=== PATIENT | female | born 1945 | race Caucasian/White ===

== ENCOUNTER 2016-08-29 07:00 | Inpatient (IN) | payer MEDICARE, OTHER ==
[~2016-08-29] VITALS: Ht 165.1 cm; Wt 58.3 kg
[2016-11-01] MEDS ORDERED: DIAZ5 PO (09:44)
[2016-11-01] MEDS ORDERED: [UNRECOGNIZED DRUG - CODE] PO (09:45)
[2016-11-01] MEDS ORDERED: METH10003 PO (09:46)
[2016-11-01] MEDS ORDERED: MULTTAB67 PO (09:47)
[2016-11-01] MEDS ORDERED: BIOT10TA PO (09:48)
--- NOTE | 2016-11-06 10:04 | MH ---
cc: Hanny CASTRO M.D. DATE OF ADMISSION 11/12/2016 ADMISSION DIAGNOSIS Osteoarthritic degeneration right hip now being admitted for right total hip arthroplasty. ADMISSION HISTORY AND PHYSICAL This 71-year female is being admitted today for a right total hip arthroplasty due to severe painful osteoarthritic degeneration right hip. OTHER PAST HISTORY The patient has a history of arthritis and having a hernia in the past. CURRENT MEDICATIONS She takes Valium 5 mg every night. PREVIOUS SURGERIES 1. Left total knee arthroplasty years ago 2. Deviated septum repair 3. Cataract surgery a month ago 4. Appendectomy 5. Hernia repair REVIEW OF SYSTEMS Noncontributory FAMILY HISTORY Noncontributory SOCIAL HISTORY She does not smoke or drink. ALLERGIES She has no known allergies. PHYSICAL EXAMINATION We find a 71-year female well-developed, well-nourished oriented x3 complaining of pain in her right hip. VITAL SIGNS: Blood pressure 118/70, pulse 73 and regular, respirations 16, temperature 97.6, pulse oximetry 97% on room air. HEENT: Eyes PERRL, EOMI. Ears, nose, mouth clear. NECK: Supple. LUNGS: Clear. HEART: Regular rate. ABDOMEN: Soft. Positive bowel sounds, nontender. EXTREMITIES: Revealed decreased range of motion right hip. She is neurovascularly intact to her toes. IMPRESSION Severe painful osteoarthritic degeneration right hip. PLAN Admission for right total hip arthroplasty today. The patient given a prescription for postoperative pain and anticoagulation control in the office. She understands she is to use Hibiclens scrub and Bactroban preoperatively. Plans on going home with home health care and physical therapy after surgery. MD RUPERTO Valencia/ADRIANA /9:57 AM /10:00 AM
[2016-11-12] MEDS ORDERED: CHLORHEXIDINE GLUCONATE 2 % 1 PACK (2 CLOTHS) TOPICAL PRN (06:15)
[2016-11-12] MEDS ORDERED: SODIUM CHLORID 0.9% 500 ML IV PRN (06:15)
[2016-11-12] MEDS ORDERED: ceFAZolin 2 GM PREMIX 50 ML IV SCH (06:15)
[2016-11-12] MEDS ORDERED: CHLORHEXIDINE GLUCONATE 4% SOLN 120 ML BTL TOPICAL SCH (06:15)
[2016-11-12] MEDS ORDERED: METOPROLOL TARTRATE 25 MG TAB PO PRN (06:15)
[2016-11-12] MEDS ORDERED: VANCOMYCIN 1000 MG/NS 250 ML (for <70 kg) IV SCH ×2 (06:15)
[2016-11-12] MEDS ORDERED: LACTATED RINGER'S 1000 ML IV PRN (06:15)
[2016-11-12] MEDS ORDERED: INSULIN HUMAN REGULAR 1,000 UNITS/10 ML VIAL SQ PRN (06:15)
[2016-11-12] MEDS ORDERED: POVIDONE IODINE 5% (ANTISEPSIS KIT) 4 APPLICATIONS EACH NARE PRN (06:15)
[2016-11-12 06:31] VITALS: BP 115/61; PULSE 65; RESP 16; TEMP 98; O2SAT 99
[2016-11-12] MEDS ORDERED: BIOTCAP PO (06:31)
[2016-11-12] MEDS ORDERED: MIDAZOLAM HCL 2 MG/2 ML VIAL ONE (07:47)
[2016-11-12] MEDS ORDERED: EXPAREL PERI-ARTICULAR INJECTION (TOTAL VOL. 120 ML) P-ARTICULR SCH ×2 (08:00)
[2016-11-12] MEDS ORDERED: SODIUM CHLORIDE 0.9% IV SCH ×2 (08:00→11:00)
[2016-11-12] MEDS ORDERED: TRANEXAMIC ACID IV SCH ×2 (08:00→11:00)
--- NOTE | 2016-11-12 08:05 | HHI.FF ---
Face to Face Verification Diagnosis: (1) Status post total hip replacement, right Physical Therapy Gait training Hip: Total hip, Protocol: Right, Posterior hip precautions, Abduction pillow while in bed, Progress to weight bearing Nursing RN: 3 days/week x 2 weeks Nursing: Natalie madera Dressing Changes: Do not change dressing I have seen patient Radha Ngo on 11/12/16. My clinical findings support the need for the requested home health care services because: Limited ability to care for self High risk of falls I certify that my clinical findings support that this patient is homebound because: Unsteady gait/balance Hanny Hernandez MD Nov 12, 2016 08:05
[2016-11-12] MEDS ORDERED: ADJUSTABLE COMM1 MIS (08:07)
[2016-11-12] MEDS ORDERED: WALKER WHEELS/F1 MIS (08:07)
[2016-11-12] MEDS ORDERED: MORPHINE SULFATE 8 MG/ML INJ IV PUSH PRN (08:15)
[2016-11-12] MEDS ORDERED: ACETAMINOPHEN 325 MG TAB PO PRN (08:15)
[2016-11-12] MEDS ORDERED: TRANEXAMIC ACID INJ 0 MG in SODIUM CHLORIDE 0.9% INJ 100 ML IV SCH (08:15)
[2016-11-12] MEDS ORDERED: MISCELLANEOUS NURSING INFORMATION XX PRN (08:15)
[2016-11-12] MEDS ORDERED: NALOXONE HCL 0.4 MG/ML AMP IV PRN (08:15)
[2016-11-12] MEDS ORDERED: TEMAZEPAM 15 MG CAP PO PRN (08:15)
[2016-11-12] MEDS ORDERED: MAGNESIUM HYDROXIDE SUSP 30 ML CUP PO PRN (08:15)
[2016-11-12] MEDS ORDERED: Post-op Orders (for Pharmacy) MISC XX ONE (08:15)
[2016-11-12] MEDS ORDERED: ACETAMINOPHEN/HYDROcodone 325 MG/7.5 MG TAB PO PRN ×2 (08:15)
[2016-11-12] MEDS ORDERED: BISACODYL 10 MG SUPP RECTAL PRN (08:15)
[2016-11-12] MEDS ORDERED: SODIUM CHLORIDE 0.9% FLUSH 5 ML FLUSH IVF PRN (08:15)
[2016-11-12] MEDS ORDERED: MORPHINE SULFATE 30 MG/30 ML PCA IV SCH (08:15)
[2016-11-12] MEDS ORDERED: ceFAZolin INJ 1,000 MG VIAL TOPICAL ONE (08:35)
[2016-11-12] MEDS: BETA CAROTENE 25,000 UNIT CAP PO SCH (09:00)
[2016-11-12] MEDS ORDERED: NON-FORMULARY DRUG (Multiple Vitamin 1 TAB) PO SCH (09:00)
[2016-11-12] MEDS ORDERED: NON-FORMULARY DRUG (Biotin 5 MG) PO SCH (09:00)
[2016-11-12] MEDS: SODIUM CHLORIDE 0.9% FLUSH 5 ML FLUSH IVF SCH ×2 (09:00→21:00)
[2016-11-12] MEDS: CYANOCOBALAMIN 1,000 MCG TAB PO SCH (09:00)
[2016-11-12] MEDS ORDERED: DO NOT ADM ANY ANTICOAGULANT DRUGS PRN (10:14)
[2016-11-12] MEDS ORDERED: *MEPERIDINE 25 MG INJ VIAL PERIprocedural Use ONLY ONE (10:26)
[2016-11-12] MEDS ORDERED: MORPHINE SULFATE 4 MG/ML INJ ONE (10:27)
--- NOTE | 2016-11-12 10:58 | RADRPT ---
EXAM DATE/TIME: 11/12/2016 10:29 [facility] COMPARISON: No previous studies available for comparison. INDICATIONS : Post op total right hip. MEDICAL HISTORY : None. SURGICAL HISTORY : None. ENCOUNTER: Initial ACUITY: 1 day PAIN SCORE: 0/10 LOCATION: Right Hip. FINDINGS: 2 view of the right hip status post right total hip arthroplasty with non-cemented femoral and acetab ular components. Single superior acetabular screws in place. Diffuse scattered areas of soft tissue gas at the surgical site. CONCLUSION: Expected postsurgical findings status post total hip arthroscopy. Bimal Cuevas MD on November 12, 2016 at 10:55 Board Certified Radiologist. This report was verified electronically.
[2016-11-12] MEDS: LACTATED RINGER'S 1000 ML INJ 1,000 ML IV SCH ×2 (11:15→21:04)
[2016-11-12] MEDS ORDERED: PHENYLEPH/NS 1000 MCG/10 ML SYR IV ONE (12:00)
[2016-11-12] MEDS ORDERED: LACTATED RINGER'S 1000 ML INJ 1,000 ML IV ONE (12:00)
[2016-11-12] MEDS ORDERED: PROPOFOL 200 MG/20 ML AMP IV ONE (12:00)
[2016-11-12] MEDS ORDERED: NEOSTIGMINE 3 MG/3 ML SYR IV ONE (12:00)
[2016-11-12] MEDS ORDERED: ONDANSETRON HCL 4 MG/2 ML VIAL IV PUSH ONE (12:00)
[2016-11-12] MEDS: PCA - TOTAL MG MORPHINE DELIVERED PER SHIFT SCH ×2 (12:11→21:05)
[2016-11-12] MEDS: ONDANSETRON HCL 4 MG/2 ML VIAL IVP PRN (12:32)
[2016-11-12 12:37] VITALS: BP 133/62; PULSE 73; RESP 16; TEMP 95.2; O2SAT 96
[2016-11-12 16:00] VITALS: BP 166/86; PULSE 78; RESP 16; TEMP 96.6; O2SAT 99
[2016-11-12 20:30] VITALS: BP 123/59; PULSE 78; RESP 17; TEMP 98.7; O2SAT 98
[2016-11-12] MEDS ORDERED: DIAZEPAM 5 MG TAB PO SCH (21:00)
--- NOTE | 2016-11-12 21:03 | MP ---
cc: Hanny CASTRO DATE OF SURGERY 11/12/2016 PREOPERATIVE DIAGNOSIS Osteoarthritic degeneration right hip POSTOPERATIVE DIAGNOSIS Osteoarthritic degeneration right hip SURGERY PERFORMED Right total hip arthroplasty using Aesculap components - size 11 lateralized stem with a 36 -4 ceramic head and a size 2 cup with a 52-36 E liner with one 28 x 6.5-mm screw. No cement utilized. SURGEON Dr. Pierre Castro TRIMMING MACHINE SET UP OPERATOR ETHEL Bourne ANESTHESIA General intubation total hip arthroplasty and fifth, she was Xeroform of components PROCEDURE: The patient was brought to the Operating Room, where after successful induction of spinal anesthesia was placed on the operating room table in the right lateral decubitus position. The right hip, thigh and leg were prepped and draped in the usual manner. A posterolateral approach was then utilized by making an incision over the proximal portion of the femur lateral aspect, carried across the greater trochanter, carried posterior in a curved incision toward the buttock. The incision was carried down through the subcutaneous tissue, through the fibers of the tensor fascia jb and gluteus karl to expose the greater trochanteric bursa. This was then removed by sharp and blunt dissection. The hip was then internally rotated to expose the insertions of the short external rotators of the hip and were incised at their insertion into the greater trochanter and reflected posterior to protect the sciatic nerve. These were held with a Charnley retractor to better visualize the hip joint. The capsule was identified and removed by sharp dissection. The hip was then dislocated by internal rotation and flexion of the hip. The femoral calcar was then measured using the trial components for the appropriate length cut of the neck using an oscillating saw. After the cut was made the head was removed. The acetabulum was then approached and measured, the acetabulum reamed with the acetabular reamers. Next, the femoral calcar was approached by first inserting a canal finder followed by rigid reamers, followed by a cookie-cutter to the appropriate size, in this case being a #15. The broach was left in place and a planer used to plane the calcar to a smooth finish. The broach was then removed. The trial components were then inserted into place, the hip reduced, found to track smoothly with no evidence of subluxation or dislocation. All trial components were removed. The wound was irrigated copiously with antibiotic solution and Water Pik. The actual components were then inserted and impacted into place using aforementioned components. The hip was reduced, found to track smoothly with no evidence of subluxation or dislocation. The wound was irrigated copiously with antibiotic solution, meticulous hemostasis achieved. The capsule was then approximated using interrupted #1 Vicryl suture, two Hemovacs inserted. Deep fascia approximated with #2 running quill, subcutaneous tissue approximated using interrupted 2-0 and 4-0 Monocryl suture and Dermabond dressing along with abduction pillow splint and knee immobilizer. No drain utilized. Sciatic nerve identified, protected throughout the procedure. 40 mL of Exparel used at anterior hip joint for extra pain control. Sciatic nerve identified and protected throughout the procedure. ETHEL Ashraf, was present during the entire procedure to include patient positioning and the procedure. The medical necessity of nurse practitioner lpn or medical assistant was indicated in this case due to the surgical complexity of the case itself. During the surgical case, surgical training specialist was working the back table while my surgical training specialist, ETHEL, was directly assisting me. Sponge and sutured count correct. The patient tolerated procedure well and left the operating in satisfactory condition. MD RUPERTO Valencia/ /10:28 AM /8:55 PM [facility]
[2016-11-13 00:05] VITALS: BP 110/53; PULSE 86; RESP 17; TEMP 100; O2SAT 97
[2016-11-13 04:12] VITALS: BP 99/56; PULSE 83; RESP 17; TEMP 99.4; O2SAT 97
[2016-11-13] MEDS: PCA - TOTAL MG MORPHINE DELIVERED PER SHIFT SCH (05:06)
[2016-11-13 07:10] LABS: HEMATOCRIT 27.9 % (35.0-46.0); REVIEW FLAG FINAL
[2016-11-13 07:21] VITALS: BP 108/51; PULSE 86; RESP 16; TEMP 99.8; O2SAT 95
--- NOTE | 2016-11-13 07:50 | PD.ORT.PN ---
Subjective Subjective Remarks pt comfortable with no complaints. Wants to go home today. Objective Vitals Vital Signs Date Time Temp Pulse Resp B/P Pulse Ox O2 Delivery O2 Flow Rate FiO2 11/13/16 05:06 18 11/13/16 04:12 99.4 83 17 99/56 97 11/13/16 00:05 100.0 86 17 110/53 97 11/12/16 21:05 18 11/12/16 20:30 98.7 78 17 123/59 98 11/12/16 16:00 96.6 78 16 166/86 99 11/12/16 15:31 21 11/12/16 12:37 95.2 73 16 133/62 96 11/12/16 11:45 69 16 141/64 95 Room Air 11/12/16 11:33 96.9 73 16 131/59 96 Room Air 11/12/16 11:28 14 11/12/16 11:15 67 14 126/61 95 Room Air 11/12/16 11:00 74 14 134/63 93 Room Air 11/12/16 10:45 73 14 137/61 94 Room Air 11/12/16 10:30 81 14 154/96 96 Room Air 11/12/16 10:26 97.0 85 14 152/72 98 Room Air I/O 11/12/16 11/12/16 11/12/16 11/13/16 11/13/16 11/13/16 07:00 15:00 23:00 07:00 15:00 23:00 Intake Total 530 ml 240 ml 480 ml Output Total 0 ml Balance 530 ml 240 ml 480 ml Intake Oral 480 ml 240 ml 480 ml IV Total 50 ml Output Urine Total 0 ml # Voids 1 3 3 # Bowel Movements 0 0 0 Result Diagram: 11/13/16 0649 Imaging Last 24 hours Impressions Hip X-Ray 11/12/16 0801 Signed Impressions: Service Date/Time: Saturday, November 12, 2016 10:29 - CONCLUSION: Expected postsurgical findings status post total hip arthroscopy. Bimal Cuevas MD Objective Remarks Dressing dry and intact. NV to toes. No calf tenderness. Ambulating well. Assessment & Plan Ortho Post Op Day #: 1 Problem List: Assessment and Plan Home today after PT with [facility]. Hanny Hernandez MD Nov 13, 2016 07:50
--- NOTE | 2016-11-13 07:54 | HHI.DS ---
Discharge Summary Admission Date Nov 12, 2016 at 05:35 Discharge Date: Nov 13, 2016 Admitting Diagnosis Osteoarthritic degeneration right hip Diagnosis: (1) Status post total hip replacement, right Diagnosis: Principal Brief History This is a 71 year old female patient CBC/BMP: 11/13/16 0649 Significant Findings Laboratory Tests Test 11/13/16 06:49 Hemoglobin 9.8 GM/DL (11.6-15.3) Hematocrit 27.9 % (35.0-46.0) PE at Discharge Dressing dry and intact. NV to toes. No calf tenderness. Ambulating well. Hospital Course Patient underwent a right total hip arthroplasty on day of admission. She received a course of prophylactic IV antibiotics and within 23 hours started on anticoagulation therapy. She continued to improve tolerating food and fluids well and was discharged the following day in the afternoon after class in good condition with instructions for home healthcare and physical therapy. She has follow-up office appointment. She is discharged on by mouth pain meds and anticoagulation therapy. Pt Condition on Discharge: Good Discharge Disposition: Disch w/ Home Health Serv Discharge Instructions Diet Instructions: As Tolerated, No Restrictions Activities You Can Perform: Full Weight Bearing, Shower Only-No Bath Activities to Avoid: Strenuous Activity, Bathing, Driving Hanny Hernandez MD Nov 13, 2016 07:54
[2016-11-13] MEDS ORDERED: ENOXAPARIN SODIUM 30 MG/0.3 ML SYRINGE SQ SCH (09:00)
[2016-11-13] MEDS: SODIUM CHLORIDE 0.9% FLUSH 5 ML FLUSH IVF SCH (09:00)
[2016-11-13] MEDS: LACTATED RINGER'S 1000 ML INJ 1,000 ML IV SCH (09:01)
[2016-11-13] MEDS: CYANOCOBALAMIN 1,000 MCG TAB PO SCH (09:03)
[2016-11-13] MEDS: BETA CAROTENE 25,000 UNIT CAP PO SCH (09:03)
[2016-11-13] MEDS: ONDANSETRON HCL 4 MG/2 ML VIAL IVP PRN (09:29)
[2016-11-13 09:30] VITALS: O2SAT 96
[2016-11-13 11:25] LABS: BACTERIA, URINE RARE /hpf; BLOOD, URINE NEG (NEG); COMMENT (UR) CULTURE INDICATED; CULTURE IF INDICATED CULTURE INDICATED; GLUCOSE,URINE NEG (NEG); KETONE, URINE NEG (NEG); MUCUS URINE FEW /lpf (OCC); NITRITE,URINE NEG (NEG); SQUAMOUS EPITHELIAL CELL URINE 1 /hpf (0-5); URINE COLOR YELLOW (YELLW/STRAW)
[2016-11-13 11:47] VITALS: BP 131/54; PULSE 91; RESP 16; TEMP 99; O2SAT 96
[2016-11-13] MEDS ORDERED: CIPR-9 PO (14:59)
[2016-11-13] MEDS ORDERED: CIPROFLOXACIN 500 MG TAB PO SCH (15:00)
[2016-11-13] MEDS ORDERED: MULTIVITAMINS/MINERALS THERAPEUTIC TAB PO SCH (21:00)
[2016-11-13] MEDS ORDERED: DOCUSATE SODIUM 100 MG CAP PO SCH (21:00)
== END 2016-11-13 16:01 | disposition home health service (06) | DRG 470 ==
LOC: HSDI 11-12 05:35 → N06B 11-12 12:15
PROVIDERS: ADMIT Surgery; ATTEND Surgery
PROC: 0SR904A Replacement of Right Hip Joint with Ceramic on Polyethylene Synthetic Substitute, Uncemented, Open Approach (ICD-10-PCS; principal; 2016-11-12 07:50)
DX: M16.11 Unilateral primary osteoarthritis, right hip (principal); Z96.652 Presence of left artificial knee joint
CPT/HCPCS: 73501; 81001; 85014; 85018; 86850; 86900; 86901; 87086; 94150; C1776; C9290; J0690; J1650; J2175; J2250; J2270; J2370; J2405; J2710; J3010; J3370; J7050; J7120; L1830

== ENCOUNTER → 2016-11-01 | Outpatient (CLI) | payer MEDICARE ==
[~2016-11-01] MED LIST: ADJUSTABLE COMM1 MIS; BIOT10TA PO; BIOTCAP PO; CIPR-9 PO; DIAZ5 PO; GLUC250C5 PO; IRON28TA PO; LORA-392 PO; METH10003 PO; METH1LOZ PO; MULTTAB67 PO; WALKER WHEELS/F1 MIS; Z.0.COMMODE-3:1; Z.0.CPM; Z.0.WALKERFRONT; [UNRECOGNIZED DRUG - CODE] PO
[2016-11-01 10:07] LABS: AUTOMATED NEUTROPHIL # 3.6 TH/MM3 (1.8-7.7); BASOPHIL % 0.4 % (0.0-2.0); EOSINOPHIL # 0.2 TH/MM3 (0-0.4); EOSINOPHIL % 2.4 % (0.0-4.0); HEMATOCRIT 42.7 % (35.0-46.0); HEMO FLAGS DIFF FINAL; LYMPH % 43.7 % (9.0-44.0); LYMPHOCYTE # 3.6 TH/MM3 (1.0-4.8); MEAN CELL VOLUME 90.2 FL (80.0-100.0); MEAN CORPUSCULAR HEMOGLOBIN 30.7 PG (27.0-34.0); MONO % 9.1 % (0.0-8.0); NEUT % 44.4 % (16.0-70.0); PLATELET COUNT 294 TH/MM3 (150-450); RED BLOOD COUNT 4.74 MIL/MM3 (4.00-5.30); RED CELL DISTRIBUTION WIDTH 14.2 % (11.6-17.2); WHITE BLOOD COUNT 8.2 TH/MM3 (4.0-11.0)
[2016-11-01 10:19] LABS: APTT (PATIENT) 26.5 SEC (24.3-30.1); PROTHROMBIN TIME - PATIENT 10.7 SEC (9.8-11.6)
[2016-11-01 10:28] LABS: ANION GAP 5 MEQ/L (5-15); AST (GOT) 20 U/L (15-37); BLOOD UREA NITROGEN 8 MG/DL (7-18); CHLORIDE 107 MEQ/L (98-107); GLOMERULAR FILTRATION RATE 80 ML/MIN (>89); GLUCOSE,FASTING 96 MG/DL (74-99); POTASSIUM 4.5 MEQ/L (3.5-5.1); SODIUM (NA) 143 MEQ/L (136-145)
[2016-11-01 10:32] LABS: ALKALINE PHOSPHATASE 74 U/L (45-117); ALT (GPT) 22 U/L (10-53); TOTAL BILIRUBIN ADULT 0.4 MG/DL (0.2-1.0)
[2016-11-01 10:33] LABS: BACTERIA, URINE RARE /hpf; BLOOD, URINE NEG (NEG); COMMENT (UR) CULT NOT INDICATED; CULTURE IF INDICATED CULT NOT INDICATED; GLUCOSE,URINE NEG (NEG); KETONE, URINE NEG (NEG); NITRITE,URINE NEG (NEG); SQUAMOUS EPITHELIAL CELL URINE 2 /hpf (0-5); URINE COLOR YELLOW (YELLW/STRAW)
--- NOTE | 2016-11-02 14:49 | EKG ---
Date Performed: 11/01/2016 Time Performed: 09:32:23 PTAGE: 71 years EKG: SINUS BRADYCARDIA BORDERLINE ECG Since PREVIOUS TRACING on 12/28/2014, no significant change. PREVIOUS TRACING on 12/28/2014 09.5 9 DOCTOR: Logan Cummins Interpretating Date/Time 11/02/2016 14:47:06
== END ==
LOC: CPRE 09:04
PROVIDERS: ATTEND Surgery
DX: Z01.812 Encounter for preprocedural laboratory examination (principal); Z01.810 Encounter for preprocedural cardiovascular examination; R00.1 Bradycardia, unspecified
CPT/HCPCS: 36415; 80053; 81001; 85025; 85610; 85730; 93005